=== PATIENT | female | born 1955 | race Caucasian/White ===

== ENCOUNTER 2022-06-17 07:30 | Outpatient (RCR) | payer MEDICARE, BC, SELFPAY | END 2022-06-21 15:37 | disposition home or self-care (01) | PROVIDERS: PCP Family Medicine; Visit Provider Family Medicine | DX: M54.9 Dorsalgia, unspecified (principal); Z51.89 Encounter for other specified aftercare | CPT/HCPCS: 97110; 97140; 97161 ==

== ENCOUNTER 2022-11-07 16:40 | Emergency (ER) | payer MEDICARE, BC, SELFPAY ==
[2022-11-07 17:09] VITALS: BP 125/80; PULSE 89; RESP 18; TEMP 36.8; O2SAT 98; BMI 26.9
--- NOTE | 2022-11-07 17:24 | ED_ITS ---
HPI - General Adult General Chief complaint: Weakness Stated complaint: Weakness Fast Heartrate Dark Urine Time Seen by Provider: 11/07/22 17:13 History of Present Illness HPI narrative: This 67-year-old female comes in reporting yellow colored skin and increased fatigue over the past few weeks. She states that she was at a condo in [place] and was normally ambulating up floor flights of stairs without any difficulty. More recently toward the end of her stay there she was needing to rest and sit down after ambulating just 1 flight of stairs. She did have some upset stomach symptoms a few weeks ago but does not report any pain, nausea, vomiting, diarrhea, or food intolerance. That while at rest she feels normal but she states that she was fatigued when ambulating into the emergency department today. Related Data Home Medications Medication Instructions Recorded Confirmed cyclobenzaprine 10 mg tablet 10 mg PO Q8H PRN 11/07/22 11/07/22 Allergies Allergy/AdvReac Type Severity Reaction Status Date / Time Sulfa (Sulfonamide Allergy Mild eyes swell Verified 11/07/22 18:33 Antibiotics) Review of Systems Status of ROS: Reports: 10 or more systems reviewed and unremarkable except as noted in History and below Narrative: Constitutional: No fevers, no weight gain or loss. Eyes: No discharge. No vision changes. HENT: No congestion, no sore throat, no ear pain. Cardiovascular: No chest pain, no palpitations. She does report episodes of increased heart rate. Respiratory: No wheezes, no cough. Shortness of breath with mild exertion. Gastrointestinal: No abdominal pain, no vomiting, no diarrhea. Genitourinary: No dysuria, no hematuria. Musculoskeletal: Normal range of motion. Skin: No rashes, no pruritis. She reports yellowish color to her skin. Neurological: No dizziness, sensory change, speech change. Endo/Heme/Allergies: No bruising or bleeding. No polydipsia. Pysch: no suicidality, no anxiety, no insomnia. All other systems reviewed and are negative. [facility] Medical History (Updated 11/07/22 @ 21:15 by Shiva Lombardo MD) Non-Hodgkin lymphoma ?C85.90 - Non-Hodgkin lymphoma, unspecified, unspecified site (ICD-10) Social History Smoking Status: Never smoker Do you use any of these nicotine containing products: None How often do you have a drink containing alcohol: never AUDIT-C Alcohol total score: 0 Non-prescribed substance use: denies use service: No Exam Narrative: Exam Narrative: Constitutional: Well-developed, well-nourished, no acute distress. HEENT: Normocephalic, atraumatic. Neck: Normal range of motion. Nontender. Supple. Heart: Regular. No murmurs. Normal rate. Intact distal pulses. Lungs: Clear to auscultation. No chest discomfort. No wheezes, rhonchi, or rales. Abdomen: Normal bowel sounds. Nontender. No rebound tenderness. Genitalia: Deferred. Back: No midline tenderness. Normal range of motion. Extremities: Normal range of motion. No injury. Skin: Intact. No rash. Warm. No erythema or pallor. She does have mild yellowish color to her skin. Neurologic: No altered sensation. No weakness. Alert and oriented. Psychiatric: No suicidality. No anxiety or depression. No insomnia. Nursing notes and vitals signs are reviewed. Const: Vital Signs, click to edit/add: Vital Signs - 24 hr 11/07/22 17:09 Temperature 98.2 F Pulse Rate [Left P ulse Oximeter] 89 Respiratory Rate 18 Blood Pressure [Le ft Upper Arm] 125/80 Pulse Oximetry 98 Oxygen Delivery Me thod Room Air Course Vital Signs Vital signs: Initial Vital Signs Temperature 98.2 F 11/07/22 17:09 Temperature Source Temporal Artery Scan 11/07/22 17:09 Pulse Rate 89 11/07/22 17:09 Respiratory Rate 18 11/07/22 17:09 Blood Pressure 125/80 11/07/22 17:09 Blood Pressure Mean 95 11/07/22 17:09 Blood Pressure Position Sitting 11/07/22 17:09 Pulse Oximetry 98 11/07/22 17:09 Oxygen Delivery Method Room Air 11/07/22 17:09 Vital Signs Temperature 98.2 F 11/07/22 17:09 Pulse Rate 89 11/07/22 17:09 Respiratory Rate 18 11/07/22 17:09 Blood Pressure 125/80 11/07/22 17:09 Pulse Oximetry 98 11/07/22 17:09 Oxygen Delivery Method Room Air 11/07/22 17:09 Temperature 98.2 F 11/07/22 17:09 Pulse Rate 89 11/07/22 17:09 Respiratory Rate 18 11/07/22 17:09 Blood Pressure 125/80 11/07/22 17:09 Pulse Oximetry 98 11/07/22 17:09 Oxygen Delivery Method Room Air 11/07/22 17:09 Medical Decision Making MDM Narrative Medical decision making narrative: This patient comes in reporting shortness of breath than fatigue. She arrives with lab results showing hemoglobin at 5.5, white blood cell count of 1.83, platelets at 135, total bilirubin at 2.9 and direct bilirubin at 0.5. Her liver enzymes are essentially normal as is her alkaline phosphatase. CT scan of the chest abdomen and pelvis with contrast is acquired and shows evidence of an enlarged spleen but no other notable findings. She does have a remote history of non-Hodgkin's lymphoma and 8 years ago was declared clear of this disease. Her LDH is elevated at around 900 and her reticulocyte count is low. I spoke with the hospitalist dehydrogenation operator head, Dr. Poon, who stated that she would be better served with a electronic bench technician consult. I did speak with Dr. Marroquin at [facility] who wanted me to speak with a electronic bench technician. I did so and the patient is approved for transfer there. Lab Data Labs: Lab Results 11/07/22 11/07/22 Range/Units 17:35 18:27 WBC 1.83 L* (4.50-11.00) K/uL RBC 1.80 L (4.00-5.20) m/uL Hgb 5.5 L* (12.0-16.0) gm/dL Hct 16.1 L (33.0-51.0) % MCV 89 (80-100) fL MCH 31 (26-34) pg MCHC 34 (32-36) gm/dL RDW Coeff of Subhash 13.2 (11.5-15.5) % Plt Count 135 L (140-440) K/uL Neut % (Auto) 57.4 (42.0-72.0) % Lymph % (Auto) 27.9 (20-44) % [place] % (Auto) 10.9 (0.0-11.0) % Eos % (Auto) 2.7 (0.0-7.0) % Baso % (Auto) 1.1 (0.0-3.0) % Neut # (Auto) 1.10 L (1.7-7.0) K/uL Lymph # (Auto) 0.50 L (0.90-2.90) K/uL [place] # (Auto) 0.20 (0.00-0.90) K/UL Eos # (Auto) 0.00 (0.00-0.50) K/uL Baso # (Auto) 0.00 (0.00-0.30) K/uL ESR 40 H (2-20) mm/hr Absolute Retic 0.02 L (0.03-0.08) # Percent Retic 0.9 (0.5-2.0) % Immature Retic Fraction 48.6 H (3.0-15.9) % Retic Hgb Equivalent 35.5 H (29.0-35.0) pg D-Dimer Quant (PE/DVT) < 0.27 (0.00-0.50) ug/ml Sodium 136 (135-149) mmol/L Potassium 3.9 (3.6-5.1) mmol/L Chloride 106 (96-114) mmol/L Carbon Dioxide 27 (20-32) mmol/L BUN 19 (7-30) mg/dL Creatinine 0.7 (0.5-1.5) mg/dL Estimated Creat Clear 45.85 Estimated GFR 94 ml/min Glucose 112 (60-115) mg/dL Calcium 8.6 (8.4-10.6) mg/dL Total Bilirubin 2.9 H (0.1-1.5) mg/dL Direct Bilirubin 0.5 (0.0-0.5) mg/dL AST 44 H (12-35) U/L ALT 22 (4-35) U/L Alkaline Phosphatase 43 (40-150) U/L Lactate Dehydrogenase 982 H (120-246) U/L C-Reactive Protein 0.9 (0.5-1.0) mg/dL Total Protein 5.6 L (6.0-8.3) g/dL Albumin 3.8 (3.3-5.0) g/dL Lipase 139 (23-300) U/L Blood Type A Positive Antibody Screen POSITIVE Crossmatch (AHG) See Detail Discharge Plan Discharge Clinical Impression: Hemolytic anemia Patient Disposition: zuleyka Banerjee Condition: Unchanged Prescriptions: No Action cyclobenzaprine 10 mg tablet 10 mg PO Q8H PRN Follow Up/Referrals: Maria Esther Carr MD [Primary Care Provider] - Stand Alone Forms: [employer] Info Instructions
[2022-11-07 17:44] LABS: Basophils Percent Auto 1.1 % (0.0-3.0); Eosinophils Percent Auto 2.7 % (0.0-7.0); Hematocrit 16.1 % (33.0-51.0); Lymphocytes Percent Auto 27.9 % (20-44); Mean Corpuscular HGB Conc 34 gm/dL (32-36); Mean Corpuscular Hemoglobin 31 pg (26-34); Mean Corpuscular Volume 89 fL (80-100); Monocytes Percent Auto 10.9 % (0.0-11.0); Neutrophils Percent Auto 57.4 % (42.0-72.0); Platelet Count* 135 K/uL (140-440); RDW Coefficient of Variation % 13.2 % (11.5-15.5)
[2022-11-07 18:02] LABS: Hemoglobin* 5.5 gm/dL (12.0-16.0); Slide Review Reflex No; White Blood Count* 1.83 K/uL (4.50-11.00)
--- NOTE | 2022-11-07 18:04 | ED.NURSE ---
informed Dr. Lombardo of the critical lab results hgb 5.5 and WBC 1.83.
[2022-11-07 18:05] LABS: D Dimer Quantitative* < 0.27 ug/ml (0.00-0.50)
[2022-11-07 18:06] LABS: Chloride* 106 mmol/L (96-114)
[2022-11-07 18:07] LABS: Potassium* 3.9 mmol/L (3.6-5.1); Sodium* 136 mmol/L (135-149)
[2022-11-07 18:08] LABS: Albumin* 3.8 g/dL (3.3-5.0)
[2022-11-07 18:09] LABS: Creatinine* 0.7 mg/dL (0.5-1.5); Est. Creatinine Clearance* 45.85; Estimated Glomerular Filt Rate 94 ml/min
[2022-11-07 18:10] LABS: Blood Urea Nitrogen* 19 mg/dL (7-30); Calcium* 8.6 mg/dL (8.4-10.6); Carbon Dioxide* 27 mmol/L (20-32); Glucose* 112 mg/dL (60-115)
[2022-11-07 18:11] LABS: Alanine Aminotransferase* 22 U/L (4-35); Alkaline Phosphatase* 43 U/L (40-150); Aspartate Amino Transferase* 44 U/L (12-35); Bilirubin Direct* 0.5 mg/dL (0.0-0.5); Bilirubin Total* 2.9 mg/dL (0.1-1.5); Lipase* 139 U/L (23-300); Total Protein* 5.6 g/dL (6.0-8.3)
[2022-11-07 18:13] LABS: C Reactive Protein* 0.9 mg/dL (0.5-1.0)
--- NOTE | 2022-11-07 18:19 | CRLHL7_ITS ---
For Patients: As a result of the 21st Century Cures Act, medical imaging exams and procedure reports are released immediately into your electronic medical record. You may view this report before your referring provider. If you have questions, please contact your health care provider. INDICATION: Anemia, jaundice, history of non-Hodgkin`s lymphoma. TECHNIQUE: CT of the chest, abdomen, and pelvis with 77 cc Isovue 370 IV contrast. Coronal and sagittal reconstructions. COMPARISON: None available. FINDINGS: Chest: Normal heart size. Normal caliber thoracic aorta and central pulmonary arteries. No large central pulmonary embolism. Small pericardial effusion. No thoracic lymphadenopathy. The thyroid gland is normal in appearance. No focal consolidation, pleural effusion, or pneumothorax. Mild linear atelectasis or scarring in the lung bases. No pulmonary nodules identified. No central endobronchial lesion or bronchial wall thickening. Mild degenerative changes of the spine. Hemangiomas in the T3 and T12 vertebral bodies. Abdomen/pelvis: There are two benign cysts in the left hepatic lobe. The liver is otherwise unremarkable. The spleen is enlarged measuring 13.7 cm in AP dimension and 13.9 cm in craniocaudal dimension. No focal splenic mass. The gallbladder, pancreas, and adrenal glands are negative. No biliary dilation. Hepatic and portal veins are patent. Symmetric enhancement of the kidneys. Tiny bilateral renal hypodensities are too small to characterize. No hydronephrosis or ureteral dilation. No obstructing urinary calculi identified. The bladder is normal in appearance. Fibroid uterus. There is a 1.4 cm cystic lesion in the left adnexa (series 6, image 113). Small hiatal hernia. No small bowel dilation. Moderate amount of stool throughout the colon. Colonic diverticulosis. There is mild inflammatory fat stranding about the junction of the descending and sigmoid colon compatible with acute diverticulitis. No significant wall thickening. No intraperitoneal free air or fluid. No evidence of abscess. Negative appendix. Small fat containing umbilical and left inguinal hernias. Aortoiliac vascular calcification. No lymphadenopathy by size criteria. Mild anterolisthesis of L4 on L5. Lumbar facet arthropathy. Hemangioma in the L3 vertebral body. IMPRESSION: 1. Mild acute uncomplicated diverticulitis at the junction of the descending and sigmoid colon. No evidence of perforation or abscess. 2. Moderate splenomegaly. No focal splenic mass. No lymphadenopathy in the chest, abdomen, or pelvis. 3. 1.4 cm left adnexal cystic lesion. 4. Small pericardial effusion. Please note that all CT scans at this facility use dose modulation, iterative reconstruction, and/or weight-based dosing when appropriate to reduce radiation dose to as low as reasonably achievable. Dictated by Jennifer Church MD @ 11/07/2022 7:17:31 PM (Electronically Signed)
[2022-11-07 18:31] LABS: Erythrocyte SedimentationRate* 40 mm/hr (2-20)
--- NOTE | 2022-11-07 18:35 | ED.NURSE ---
Dr. Lombardo is in talking with and daughter
[2022-11-07 20:05] LABS: Immature Reticulocyte Fraction 48.6 % (3.0-15.9); Reticulocyte Hemoglobin Equivi 35.5 pg (29.0-35.0); Reticulocyte Percent 0.9 % (0.5-2.0); Reticulocytes Absolute 0.02 # (0.03-0.08)
[2022-11-07 20:13] LABS: Lactate Dehydrogenase* 982 U/L (120-246)
--- NOTE | 2022-11-07 22:56 | ED.NURSE ---
Nurse to nurse phone report give to Flaca PICKARD. Patient will be going to [facility] bed [id number]
--- NOTE | 2022-11-07 23:10 | ED.NURSE ---
Patients IV wrapped, patient assited into the car, daughter and bringing patient to [place] via private car.
[2022-11-07 23:15] VITALS: BP 114/69; PULSE 87; RESP 20; TEMP 36.5; O2SAT 98
[2022-11-09 20:08] LABS: Haptoglobin <10 mg/dL (30-200)
== END 2022-11-07 23:17 | disposition short-term general hospital (02) ==
PROVIDERS: Family Medicine; Emergency Provider Emergency Medicine Emergency Medical Services; PCP Family Medicine
DX: D59.8 Other acquired hemolytic anemias (principal)
CPT/HCPCS: 36415; 71260; 74177; 80048; 80076; 83010; 83615; 83690; 85025; 85045; 85379; 85651; 86140; 86850; 86870; 86900; 86901; 86922; 99285; Q9967

== ENCOUNTER 2024-03-09 12:56 | Emergency (ER) | payer MEDICARE, BC, SELFPAY ==
[2024-03-09 13:02] VITALS: BP 109/68; PULSE 94; RESP 14; TEMP 37.9; O2SAT 96; BMI 28.0
--- NOTE | 2024-03-09 13:22 | ED.GENADULT ---
HPI - General Adult General Time Seen by Provider: 13:22 <Nohemy Beasley MD - Last Filed: 03/09/24 15:08> Date Seen: 03/09/24 <Nohemy Beasley MD - Last Filed: 03/09/24 15:08> Chief complaint: Urogenital Problems, Female <Nohemy Beasley MD - Last Filed: 03/09/24 15:08> Stated complaint: Urinary infection <Nohemy Beasley MD - Last Filed: 03/09/24 15:08> Time Seen by Provider: 03/09/24 13:02 <Nohemy Beasley MD - Last Filed: 03/09/24 15:08> Source: patient, family, RN notes reviewed, old records reviewed and other (phone call received from Dr. Morocho at [facility]) <Nohemy Beasley MD - Last Filed: 03/09/24 15:08> Mode of arrival: ambulatory <Nohemy Beasley MD - Last Filed: 03/09/24 15:08> Limitations: no limitations <Nohemy Beasley MD - Last Filed: 03/09/24 15:08> History of Present Illness HPI narrative: This 68-year-old female is referred from [facility] for further evaluation and management of a UTI diagnosed yesterday. She was in clinic yesterday and saw Dr. Morocho for urinary frequency, urgency, some dysuria. Her blood pressure was 94/69, he did give her L of fluids, her blood pressure went up into the low 100 systolics. He also gave her Rocephin in clinic. He did do a white blood count yesterday and was 8 1400. She typically runs in the 3000 range with leukopenia stemming from history of non-Hodgkin's lymphoma. He did see her back today, her blood pressure was 84/56, pulse of 105, recheck was 96/62. If he did order labs, he would not get them back until Tuesday, her exam was benign but he was concerned that she needed further evaluation with labs, maybe repeat Rocephin, possibly repeat fluids. He was thinking that the patient might be able to go home with with further stabilization and evaluation. He did want to make sure that labs and clinical evaluation did not require hospitalization. She did start on Keflex last night, has completed 2 oral doses of that. She feels her urinary symptoms are actually better. She had a fever on arrival here, had not noted 1 before. She felt chilled about a week ago, she has had chills the last couple days. She maybe had some diarrhea 2-3 days ago. She otherwise has no abdominal or back pain. No nausea or vomiting, no diarrhea now. She is not noting any hematuria. She has no history of kidney stones. She overall feels like she is probably well enough to return home. White blood count from yesterday was 8400, hemoglobin 13, platelet count [id number]. Urinalysis was slightly cloudy, specific gravity of 1.025, protein 100, glucose negative, ketones negative, occult blood trace, nitrate negative, leukocyte esterase moderate; microscopy with 6-10 red blood cells, 51-100 white blood cells, many bacteria, many epithelial cells, mucus present. <Nohemy Beasley MD - Last Filed: 03/09/24 15:08> Related Data Home medications: Home Medications ?Medication ?Instructions ?Recorded ?Confirmed cyclobenzaprine 10 mg tablet 10 mg PO Q8H PRN 11/07/22 03/09/24 cephalexin 500 mg capsule 500 mg PO 3XD 03/09/24 03/09/24 Previous Rx's ?Medication ?Instructions ?Recorded ciprofloxacin HCl 500 mg tablet 500 mg PO Q12H #14 tabs 03/09/24 (Cipro) <Nohemy Beasley MD - Last Filed: 03/09/24 15:08> Allergies/adverse reactions: Allergies Allergy/AdvReac Type Severity Reaction Status Date / Time Sulfa (Sulfonamide Allergy Mild eyes swell Verified 03/09/24 16:28 Antibiotics) <Nohemy Beasley MD - Last Filed: 03/09/24 15:08> Review of Systems Status of ROS: Reports: 6 or more systems reviewed and unremarkable except as noted in History and below <Nohemy Beasley MD - Last Filed: 03/09/24 15:08> [facility] Medical History: Medical History Non-Hodgkin lymphoma ?C85.90 - Non-Hodgkin lymphoma, unspecified, unspecified site (ICD-10) <Nohemy Beasley MD - Last Filed: 03/09/24 15:08> Social History: Social History Smoking Status: Never smoker Do you use any of these nicotine containing products: None How often do you have a drink containing alcohol: 2-3 times a week AUDIT-C Alcohol total score: 3 Non-prescribed substance use: denies use service: No <Nohemy Beasley MD - Last Filed: 03/09/24 15:08> Exam Const: Vital Signs, click to edit/add: Vital Signs - 24 hr 03/09/24 13:02 03/09/24 15:27 Temperature 100.3 F H 99.0 F Pulse Rate [Left R adial] 94 99 Respiratory Rate 14 18 Blood Pressure [Ri ght Upper Arm] 109/68 118/73 Pulse Oximetry 96 96 Oxygen Delivery Me thod Room Air Room Air Patient is alert, interactive, no apparent distress. Ambulatory into the ED of her own accord. Sclera clear, conjugate gaze, symmetric facial function. Speaking in complete sentences without difficulty. Neck thin, no adenopathy, no jugular venous distension. Lungs are clear anteriorly. CV regular rate and rhythm, no murmur, normal S1-S2, no S3-S4. No CVA tenderness. Abdomen is soft, nontender, nondistended, no organomegaly, no rebound or guarding. She has no lower extremity edema. <Nohemy Beasley MD - Last Filed: 03/09/24 15:08> Vital Signs, click to edit/add: Vital Signs - 24 hr 03/09/24 13:02 03/09/24 15:27 Temperature 100.3 F H 99.0 F Pulse Rate [Left R adial] 94 99 Respiratory Rate 14 18 Blood Pressure [Ri ght Upper Arm] 109/68 118/73 Pulse Oximetry 96 96 Oxygen Delivery Me thod Room Air Room Air <Norman Dang DO - Last Filed: 03/09/24 18:17> Documenting provider has reviewed patient's vital signs: yes <Nohemy Beasley MD - Last Filed: 03/09/24 15:08> Course Course ED Course: Urine culture is pending from clinic from yesterday, will not re-evaluate urine at this time. Will initiate an IV with 1 L IV fluids, 1 g IV Rocephin. Will check baseline labs. I agree with Dr. Morocho, exam is benign and do not feel that imaging is necessary. She does have a low-grade fever here, will await labs to guide us clinically. <Nohemy Beasley MD - Last Filed: 03/09/24 15:08> Reevaluation(s) Time of Reevaluation #1: 14:38 <Nohemy Beasley MD - Last Filed: 03/09/24 15:08> Reevaluation #1: Reviewed with the patient that her CRP is definitely elevated. Her white blood count is relatively elevated as well at 7000 range. She typically is leukopenic. We are going to proceed with CT imaging just to ensure that there is no extension of this infection, no complication. She is now with a fever and has not been documented before. This would suggest that she is worsening, not improving on current regimen. May need to consider antibiotic change if there are concerning findings on the CT. <Nohemy Beasley MD - Last Filed: 03/09/24 15:08> Vital Signs Vital signs: Initial Vital Signs Temperature 100.3 F H 03/09/24 13:02 Temperature Source Temporal Artery Scan 03/09/24 13:02 Pulse Rate 94 03/09/24 13:02 Pulse Rhythm Regular 03/09/24 13:02 Respiratory Rate 14 03/09/24 13:02 Blood Pressure 109/68 03/09/24 13:02 Blood Pressure Mean 81 03/09/24 13:02 Pulse Oximetry 96 03/09/24 13:02 Oxygen Delivery Method Room Air 03/09/24 13:02 Vital Signs Temperature 100.3 F H 03/09/24 13:02 Pulse Rate 94 03/09/24 13:02 Respiratory Rate 14 03/09/24 13:02 Blood Pressure 109/68 03/09/24 13:02 Pulse Oximetry 96 03/09/24 13:02 Oxygen Delivery Method Room Air 03/09/24 13:02 Temperature 99.0 F 03/09/24 15:27 Pulse Rate 99 03/09/24 15:27 Respiratory Rate 18 03/09/24 15:27 Blood Pressure 118/73 03/09/24 15:27 Pulse Oximetry 96 03/09/24 15:27 Oxygen Delivery Method Room Air 03/09/24 15:27 <Nohemy Beasley MD - Last Filed: 03/09/24 15:08> Initial Vital Signs Temperature 100.3 F H 03/09/24 13:02 Temperature Source Temporal Artery Scan 03/09/24 13:02 Pulse Rate 94 03/09/24 13:02 Pulse Rhythm Regular 03/09/24 13:02 Respiratory Rate 14 03/09/24 13:02 Blood Pressure 109/68 03/09/24 13:02 Blood Pressure Mean 81 03/09/24 13:02 Pulse Oximetry 96 03/09/24 13:02 Oxygen Delivery Method Room Air 03/09/24 13:02 Vital Signs Temperature 100.3 F H 03/09/24 13:02 Pulse Rate 94 03/09/24 13:02 Respiratory Rate 14 03/09/24 13:02 Blood Pressure 109/68 03/09/24 13:02 Pulse Oximetry 96 03/09/24 13:02 Oxygen Delivery Method Room Air 03/09/24 13:02 Temperature 99.0 F 03/09/24 15:27 Pulse Rate 99 03/09/24 15:27 Respiratory Rate 18 03/09/24 15:27 Blood Pressure 118/73 03/09/24 15:27 Pulse Oximetry 96 03/09/24 15:27 Oxygen Delivery Method Room Air 03/09/24 15:27 <Norman Dang DO - Last Filed: 03/09/24 18:17> Medications Administered Medications: Discontinued Medications Generic Name Dose Route Start Last Admin Trade Name Freq PRN Reason Stop Dose Admin Sodium Chloride 1,000 mls @ 500 mls/hr 03/09/24 13:31 03/09/24 15:37 0.9 % Sodium Chloride 1000 Ml IV 03/09/24 15:30 Infused .Q2H RADHA Infusion Ceftriaxone Sodium 1 gm/ 100 mls @ 200 mls/hr 03/09/24 13:31 03/09/24 14:25 Sodium Chloride IVPB 03/09/24 13:32 Infused ONCE ONE Infusion <Nohemy Beasley MD - Last Filed: 03/09/24 15:08> Discontinued Medications Generic Name Dose Route Start Last Admin Trade Name Zack PRN Reason Stop Dose Admin Sodium Chloride 1,000 mls @ 500 mls/hr 03/09/24 13:31 03/09/24 15:37 0.9 % Sodium Chloride 1000 Ml IV 03/09/24 15:30 Infused .Q2H RADHA Infusion Ceftriaxone Sodium 1 gm/ 100 mls @ 200 mls/hr 03/09/24 13:31 03/09/24 14:25 Sodium Chloride IVPB 03/09/24 13:32 Infused ONCE ONE Infusion <Norman Dang DO - Last Filed: 03/09/24 18:17> Medical Decision Making MDM Narrative Medical decision making narrative: Patient is a 68-year-old female who was signed out to me pending CT report. There is concerned she could have pyelonephritis. The CT results returned showing subtle bilateral hypodensities that are concerning for pyelonephritis. There is also mild bladder wall thickening and likely has insisted on. All those points to her having pyelonephritis and I will switch her antibiotic from Keflex to Cipro. She is feeling well at this time and feels safe for discharge. <Norman Dang DO - Last Filed: 03/09/24 18:17> Lab Data Labs: Lab Results 03/09/24 03/09/24 03/09/24 Range/Units 13:19 13:35 14:05 WBC 7.13 (4.50-11.00) K/uL RBC 3.85 L (4.00-5.20) m/uL Hgb 11.5 L (12.0-16.0) gm/dL Hct 34.7 (33.0-51.0) % MCV 90 (80-100) fL MCH 30 (26-34) pg MCHC 33 (32-36) gm/dL RDW Coeff of Subhash 13.5 (11.5-15.5) % Plt Count 229 (140-440) K/uL Neut % (Auto) 76.0 H (42.0-72.0) % Lymph % (Auto) 8.7 L (20-44) % [place] % (Auto) 13.9 H (0.0-11.0) % Eos % (Auto) 1.0 (0.0-7.0) % Baso % (Auto) 0.3 (0.0-3.0) % Neut # (Auto) 5.40 (1.7-7.0) K/uL Lymph # (Auto) 0.60 L (0.90-2.90) K/uL [place] # (Auto) 1.00 H (0.00-0.90) K/UL Eos # (Auto) 0.07 (0.00-0.50) K/uL Baso # (Auto) 0.02 (0.00-0.30) K/uL Abs Immat Gran (auto) 0.01 (0.00-0.30) K/uL Imm/Tot Granulo (auto) 0.1 % Sodium 129 L (135-149) mmol/L Potassium 3.8 (3.6-5.1) mmol/L Chloride 98 (96-114) mmol/L Carbon Dioxide 25 (20-32) mmol/L Anion Gap 6 L (7-15) mEq/L BUN 12 (7-30) mg/dL Creatinine 0.7 (0.5-1.5) mg/dL Estimated Creat Clear 47.10 Estimated GFR 93 ml/min Glucose 89 (60-115) mg/dL Lactate 1.1 (0.5-1.9) mmol/L Calcium 8.9 (8.4-10.6) mg/dL C-Reactive Protein 19.2 H (0.5-1.0) mg/dL Procalcitonin 0.25 (<0.50) ng/mL Urine Color Yellow (Yellow) Urine Appearance Clear (Clear) Urine pH 6.0 (5.0-8.5) Ur Specific [place] <= 1.005 (1.000-1.030) Urine Protein Negative (Negative) Urine Glucose (UA) Negative (Negative) Urine Ketones Negative (Negative) Urine Blood Negative (Negative) Urine Nitrite Negative (Negative) Urine Bilirubin Negative (Negative) Urine Urobilinogen 0.2 (0.2-1.0) Ur Leukocyte Esterase 1+ A (Negative) Urine RBC 0-2 (0-2) Urine WBC 5-10 A (0-5) Ur Squamous Epith Cells Few (None-Few) Urine Bacteria Few A (None) Lab Acknowledgement Test Added <Nohemy Beasley MD - Last Filed: 03/09/24 15:08> Lab Results 03/09/24 03/09/24 03/09/24 Range/Units 13:19 13:35 14:05 WBC 7.13 (4.50-11.00) K/uL RBC 3.85 L (4.00-5.20) m/uL Hgb 11.5 L (12.0-16.0) gm/dL Hct 34.7 (33.0-51.0) % MCV 90 (80-100) fL MCH 30 (26-34) pg MCHC 33 (32-36) gm/dL RDW Coeff of Subhash 13.5 (11.5-15.5) % Plt Count 229 (140-440) K/uL Neut % (Auto) 76.0 H (42.0-72.0) % Lymph % (Auto) 8.7 L (20-44) % [place] % (Auto) 13.9 H (0.0-11.0) % Eos % (Auto) 1.0 (0.0-7.0) % Baso % (Auto) 0.3 (0.0-3.0) % Neut # (Auto) 5.40 (1.7-7.0) K/uL Lymph # (Auto) 0.60 L (0.90-2.90) K/uL [place] # (Auto) 1.00 H (0.00-0.90) K/UL Eos # (Auto) 0.07 (0.00-0.50) K/uL Baso # (Auto) 0.02 (0.00-0.30) K/uL Abs Immat Gran (auto) 0.01 (0.00-0.30) K/uL Imm/Tot Granulo (auto) 0.1 % Sodium 129 L (135-149) mmol/L Potassium 3.8 (3.6-5.1) mmol/L Chloride 98 (96-114) mmol/L Carbon Dioxide 25 (20-32) mmol/L Anion Gap 6 L (7-15) mEq/L BUN 12 (7-30) mg/dL Creatinine 0.7 (0.5-1.5) mg/dL Estimated Creat Clear 47.10 Estimated GFR 93 ml/min Glucose 89 (60-115) mg/dL Lactate 1.1 (0.5-1.9) mmol/L Calcium 8.9 (8.4-10.6) mg/dL C-Reactive Protein 19.2 H (0.5-1.0) mg/dL Procalcitonin 0.25 (<0.50) ng/mL Urine Color Yellow (Yellow) Urine Appearance Clear (Clear) Urine pH 6.0 (5.0-8.5) Ur Specific [place] <= 1.005 (1.000-1.030) Urine Protein Negative (Negative) Urine Glucose (UA) Negative (Negative) Urine Ketones Negative (Negative) Urine Blood Negative (Negative) Urine Nitrite Negative (Negative) Urine Bilirubin Negative (Negative) Urine Urobilinogen 0.2 (0.2-1.0) Ur Leukocyte Esterase 1+ A (Negative) Urine RBC 0-2 (0-2) Urine WBC 5-10 A (0-5) Ur Squamous Epith Cells Few (None-Few) Urine Bacteria Few A (None) Lab Acknowledgement Test Added <Norman Dang DO - Last Filed: 03/09/24 18:17> Imaging Data Chest x-ray: Attestation: I have reviewed the pertinent imaging results. <Nohemy Beasley MD - Last Filed: 03/09/24 15:08> My impression: I see no acute pathology on my preliminary review. <Nohemy Beasley MD - Last Filed: 03/09/24 15:08> Radiologist's impression: Patient: MOE ALCALA Facility:?[facility] Patient ID:?[id number] Site Patient ID:?[id number]. Site :?[id number] Study:?XRay-Chest PORTABLE 1 VIEW-03/09/2024 1:52:34 PM Ordering Physician:Alexx Slater Final Report: INDICATION: Cough, fever TECHNIQUE: Chest radiograph 1 view COMPARISON: 02/13/2013 FINDINGS: The sensitivity and specificity of the exam are severely limited by the patient`s body habitus. Mediastinum: The mediastinum is normal in appearance. The heart silhouette is normal in size and morphology. Lung: Both lungs are unremarkable in appearance with small lung volumes. No sign of pleural effusion seen. No pneumothorax is identified. Bone and Soft tissue: Unremarkable for age. IMPRESSION: 1. No acute cardiopulmonary disease is seen. Dictated by: Diaz Ayala MD @ 03/09/2024 14:30:08 (Electronic Signature) <Nohemy Beasley MD - Last Filed: 03/09/24 15:08> CT scan - abdomen: Attestation: I have reviewed the pertinent imaging results. <Norman Dang DO - Last Filed: 03/09/24 18:17> Radiologist's impression: Subtle bilateral hypodensities in the kidneys concerning for pyelonephritis. No definite abscess although phlegmon may be present at the inferior pole of the right kidney in the region of the cyst. Mild bladder wall thickening and collecting system enhancement likely related to urinary infection. Please note that all CT scans at this facility use dose modulation, iterative reconstruction, and/or weight-based dosing when appropriate to reduce radiation dose to as low as reasonably achievable. Dictated by Herrera Basilio MD @ 03/09/2024 5:54:26 PM <Norman Dang DO - Last Filed: 03/09/24 18:17> Discharge Plan Discharge Clinical Impression: Acute pyelonephritis <Nohemy Beasley MD - Last Filed: 03/09/24 15:08> Patient Disposition: Home, Self-Care <Nohemy Beasley MD - Last Filed: 03/09/24 15:08> Condition: Improved <Nohemy Beasley MD - Last Filed: 03/09/24 15:08> Instructions: Kidney Infection (ED) <Nohemy Beasley MD - Last Filed: 03/09/24 15:08> Additional Instructions: Stop taking the Keflex and instead start taking the prescribed Cipro. Return to emergency department for new or worsening symptoms. <Nohemy Beasley MD - Last Filed: 03/09/24 15:08> Prescriptions: New ciprofloxacin HCl [Cipro] 500 mg tablet 500 mg PO Q12H Qty: 14 0RF No Action cephalexin 500 mg capsule 500 mg PO 3XD cyclobenzaprine 10 mg tablet 10 mg PO Q8H PRN <Nohemy Beasley MD - Last Filed: 03/09/24 15:08> Follow Up/Referrals: Maria Esther Carr MD [Primary Care Provider] - <Nohemy Beasley MD - Last Filed: 03/09/24 15:08> Stand Alone Forms: MyHealth Info Instructions <Nohemy Beasley MD - Last Filed: 03/09/24 15:08>
--- NOTE | 2024-03-09 13:34 | CRLHL7_ITS ---
For Patients: As a result of the Cures Act, medical imaging exams and procedure reports are released immediately into your electronic medical record. You may view this report before your referring provider. If you have questions, please contact your health care provider. INDICATION: Cough, fever TECHNIQUE: Chest radiograph 1 view COMPARISON: 02/13/2013 FINDINGS: The sensitivity and specificity of the exam are severely limited by the patient`s body habitus. Mediastinum: The mediastinum is normal in appearance. The heart silhouette is normal in size and morphology. Lung: Both lungs are unremarkable in appearance with small lung volumes. No sign of pleural effusion seen. No pneumothorax is identified. Bone and Soft tissue: Unremarkable for age. IMPRESSION: 1. No acute cardiopulmonary disease is seen. Dictated by: Diaz Ayala MD @ 03/09/2024 14:30:08 (Electronically Signed)
[2024-03-09 13:45] LABS: Lactate* 1.1 mmol/L (0.5-1.9)
[2024-03-09 13:46] LABS: Basophils Absolute Auto 0.02 K/uL (0.00-0.30); Basophils Percent Auto 0.3 % (0.0-3.0); Eosinophils Absolute Auto 0.07 K/uL (0.00-0.50); Hematocrit 34.7 % (33.0-51.0); Hemoglobin* 11.5 gm/dL (12.0-16.0); Immature Granulocytes Abs Auto 0.01 K/uL (0.00-0.30); Immature Granulocytes Pct Auto 0.1 %; Lymphocytes Percent Auto 8.7 % (20-44); Mean Corpuscular HGB Conc 33 gm/dL (32-36); Mean Corpuscular Hemoglobin 30 pg (26-34); Mean Corpuscular Volume 90 fL (80-100); Monocytes Percent Auto 13.9 % (0.0-11.0); Platelet Count* 229 K/uL (140-440); RDW Coefficient of Variation % 13.5 % (11.5-15.5); Red Blood Count 3.85 m/uL (4.00-5.20); White Blood Count* 7.13 K/uL (4.50-11.00)
[2024-03-09] MEDS: 0.9 % SODIUM CHLORIDE 1000 ml 1,000 ML 500 ML IV (13:50)
[2024-03-09] MEDS: cefTRIAXone 1 GM in 0.9 % SODIUM CHLORIDE Mini-bag 100 ML IVPB (13:50)
[2024-03-09 13:57] LABS: Slide Review Reflex No
[2024-03-09 14:00] LABS: Chloride* 98 mmol/L (96-114)
[2024-03-09 14:01] LABS: Potassium* 3.8 mmol/L (3.6-5.1); Sodium* 129 mmol/L (135-149)
[2024-03-09 14:03] LABS: Creatinine* 0.7 mg/dL (0.5-1.5); Estimated Glomerular Filt Rate 93 ml/min
[2024-03-09 14:04] LABS: Anion Gap 6 mEq/L (7-15); Blood Urea Nitrogen* 12 mg/dL (7-30); Calcium* 8.9 mg/dL (8.4-10.6); Carbon Dioxide* 25 mmol/L (20-32); Glucose* 89 mg/dL (60-115)
[2024-03-09 14:16] LABS: Appearance Urine Clear (Clear); Bilirubin Urine Negative (Negative); Blood Urine Negative (Negative); Color Urine Yellow (Yellow); Glucose Urine Negative (Negative); Ketones Urine Negative (Negative); Leukocyte Esterase Urine 1+ (Negative); Nitrite Urine Negative (Negative); Protein Urine Negative (Negative); Specific Gravity Urine <= 1.005 (1.000-1.030); Urobilinogen Urine 0.2 (0.2-1.0)
[2024-03-09 14:20] LABS: C Reactive Protein* 19.2 mg/dL (0.5-1.0); Procalcitonin* 0.25 ng/mL (<0.50)
[2024-03-09 14:31] LABS: Bacteria Urine Few; RBC Urine 0-2 (0-2); Squamous Epithelial Cell Urine Few (None-Few)
--- NOTE | 2024-03-09 14:37 | CRLHL7_ITS ---
For Patients: As a result of the Century Cures Act, medical imaging exams and procedure reports are released immediately into your electronic medical record. You may view this report before your referring provider. If you have questions, please contact your health care provider. INDICATION: FEVER, WORSENING UTI SYMPTOMS, HYPOTENSION. TECHNIQUE: CT abdomen and pelvis acquired with 82 cc Omnipaque 350 IV contrast. COMPARISON: None. FINDINGS: Lower chest: Unremarkable. Liver: Hepatic cysts identified. Normal in size and attenuation. No suspicious masses. Gallbladder and bile ducts: Unremarkable. No stones or inflammation. No biliary dilatation. Pancreas: Unremarkable. No mass or inflammation. Spleen: Unremarkable. Normal in size. No masses. Adrenal glands: Unremarkable. No nodules. Kidneys: Subtle hypodensity at the inferior margin of the right kidney extending to a cyst. There is perinephric fat stranding. Similar subtle hypodensity in the parenchyma of the superior aspect of the left kidney. No hydronephrosis or hydroureter. Subtle mucosal enhancement in the collecting system and ureters. GI tract: Scattered colonic diverticuli. No evidence of diverticulitis. Fluid within the large bowel. Appendix is within normal limits. Small hiatal hernia. Vasculature: Abdominal aorta is normal in caliber. Mesenteric arteries are patent. Lymph nodes: No lymphadenopathy. Peritoneum/Abdominal Wall: Unremarkable. No sign of mass or infiltration. No free air or significant free fluid. Pelvis: Minimal bladder wall thickening. Fibroid uterus. Bones: Unremarkable for age. IMPRESSION: Subtle bilateral hypodensities in the kidneys concerning for pyelonephritis. No definite abscess although phlegmon may be present at the inferior pole of the right kidney in the region of the cyst. Mild bladder wall thickening and collecting system enhancement likely related to urinary infection. Please note that all CT scans at this facility use dose modulation, iterative reconstruction, and/or weight-based dosing when appropriate to reduce radiation dose to as low as reasonably achievable. Dictated by Herrera Basilio MD @ 03/09/2024 5:54:26 PM (Electronically Signed)
[2024-03-09 15:27] VITALS: BP 118/73; PULSE 99; RESP 18; TEMP 37.2; O2SAT 96
== END 2024-03-09 18:28 | disposition home or self-care (01) ==
PROVIDERS: Family Medicine; Emergency Provider Student in an Organized Health Care Education/Training Program; PCP Family Medicine
DX: N10 Acute pyelonephritis (principal)
CPT/HCPCS: 36415; 71045; 74177; 80048; 81001; 83605; 84145; 85025; 86140; 87086; 96365; 99283; 99284; 99285; J0696; J7030; Q9967